=== PATIENT | female | born 1955 | race Caucasian/White ===

== ENCOUNTER → 2019-06-27 11:31 | Day surgery (SDC) | payer BC ==
[~2019-06-27 11:31] MED LIST: Buffered Lidocaine 1% SYRIN* 1 ML/SYRINGE INTRADERM ONE; Bupivacaine 0.25% SDV PF* 10 ML VIAL INJ ONE; Lactated Ringers 1000 ML Bag* 1,000 ML IV SCH; Lidocaine 1% w EPI 1:100,000* MDV 20 ML VIAL ONE; Midazolam* 1 MG/ML 2 ML VIAL (2 MG) ONE; Naloxone* 0.4 MG/ML 1 ML VIAL IV PRN; Propofol* 10 MG/ML 20 ML BTL ONE; ceFAZolin 2 GM in NS PREMIX(*) 2 GM/100 ML BAG IVPB ONE; fentaNYL* 50 MCG/ML 2 ML VIAL (100 MCG VIAL) ONE
[2019-06-27 16:27] VITALS: BP 146/80
== END | disposition home or self-care (01) ==
LOC: OR 11:31
PROVIDERS: ATTEND Plastic Surgery
DX: C44.712 Basal cell carcinoma of skin of right lower limb, including hip (principal); J30.89 Other allergic rhinitis; Z85.828 Personal history of other malignant neoplasm of skin; E78.5 Hyperlipidemia, unspecified; R00.2 Palpitations; G47.00 Insomnia, unspecified
CPT/HCPCS: 88305; 88331; 88332; J0690; J2250; J2704; J3010; J3490

== ENCOUNTER 2023-03-24 14:11 | Inpatient (IN) ==
[2023-03-24 16:35] LABS: ABS Eosinophils 0.1 10^3/uL (0.0-0.5); ABS Lymphocytes 1.1 10^3/uL (1.0-4.8); ABS Monocytes 0.6 10^3/uL (0.0-0.9); ABS Nucleated RBC 0.01 10^3/ul; Eosinophil % 0.5 %; Hematocrit 37.7 % (35-45); Hemoglobin 13.2 g/dL (11.5-14.3); Lymphocyte % 10.2 %; Mean Corpuscular Hemoglobin 33.4 pg (27-33); Mean Corpuscular Hgb Conc 35.1 g/dL (31-36); Mean Corpuscular Volume 95.1 fL (80-97); Nucleated Red Blood Cells % 0.1 /100 WBC (0.0-0.4); Platelet Count 257 10^3/uL (150-450); Red Blood Count 3.97 10^6/uL (3.63-4.92); Red Cell Distribution Width 12.6 % (12-17); White Blood Count 10.8 10^3/uL (3.8-11.8)
[2023-03-24 16:39] LABS: Urine Appearance Cloudy; Urine Bilirubin Negative (Negative); Urine Blood 1+ (Negative); Urine Color Amber; Urine Glucose Negative (Negative); Urine Ketones 2+ (Negative); Urine Nitrite Negative (Negative); Urine Protein 1+(30 mg/dL) (Negative); Urine Specific Gravity 1.031 (1.002-1.030); Urine Urobilinogen Negative (Negative)
[2023-03-24 16:44] LABS: Urine Bacteria Absent (Absent); Urine Red Blood Cell 3+(>10/hpf) (Absent); Urine Squamous Epithelial Cell Present (Absent); Urine White Blood Cell 2+(11-20/hpf) (Absent)
[2023-03-24 17:30] LABS: Albumin 4.1 g/dL (3.2-5.2); Albumin/Globulin Ratio 1.3 (1-3); C Reactive Protein 269.24 mg/L (<8.01); Calcium 9.1 mg/dL (8.6-10.3); Creatinine, Serum 0.66 mg/dL (0.51-0.95); Globulin 3.2 g/dL (2-4); Potassium 4.1 mmol/L (3.5-5.0); Total Bilirubin 0.8 mg/dL (0.2-1.0); Total Protein 7.3 g/dL (6.4-8.9); eGFR CKD-EPI 96.7 (>60)
[2023-03-24] MEDS ORDERED: Lactated Ringers 1000 ml BAG 1,000 ML IV ONE (18:02)
[2023-03-24] MEDS ORDERED: Ondansetron 4 mg VIAL 2 MG/ML 2 ml VIAL IV ONE (18:02)
[2023-03-24] MEDS ORDERED: Iohexol 350 (CONTRAST) 500 ML MDV IV ONE (18:10)
[2023-03-24] MEDS ORDERED: metroNIDAZOLE IV 500 MG/100ML 500 MG/100 ML BAG IVPB ONE (19:43)
[2023-03-24] MEDS ORDERED: Piperacillin/Tazobac ADVAN 3.375 GM in NS 0.9% 100 ml BAG 100 ML IV ONE (19:43)
[2023-03-24] MEDS ORDERED: HYDROmorphone 1 MG/1 ML SYRINGE IV SLOW PU PRN (19:56)
[2023-03-24] MEDS ORDERED: oxyCODONE/Acetamin 5/325 mg TAB PO PRN (19:56)
[2023-03-24] MEDS ORDERED: Ondansetron 4 mg VIAL 2 MG/ML 2 ml VIAL IV PRN (20:04)
[2023-03-24] MEDS ORDERED: Metoclopramide 5 MG/ML VIAL (10 mg) IV PRN (20:04)
[2023-03-24] MEDS: NS 0.9% 1000 ml BAG 1,000 ML IV SCH (20:42)
[2023-03-24] MEDS: cefTRIAXone 1 gm/50 mL D5W 1 GM/50 ML BAG IV SCH (22:08)
[2023-03-25] MEDS: metroNIDAZOLE IV 500 MG/100ML 500 MG/100 ML BAG IVPB SCH ×3 (05:05→21:05)
[2023-03-25 06:08] LABS: ABS Eosinophils 0.1 10^3/uL (0.0-0.5); ABS Lymphocytes 1.1 10^3/uL (1.0-4.8); ABS Monocytes 0.7 10^3/uL (0.0-0.9); ABS Neutrophils 6.3 10^3/uL (1.5-7.6); ABS Nucleated RBC 0.01 10^3/ul; Eosinophil % 1.1 %; Hematocrit 34.9 % (35-45); Lymphocyte % 13.7 %; Mean Corpuscular Hemoglobin 33.4 pg (27-33); Mean Corpuscular Hgb Conc 34.5 g/dL (31-36); Mean Corpuscular Volume 96.8 fL (80-97); Nucleated Red Blood Cells % 0.1 /100 WBC (0.0-0.4); Platelet Count 220 10^3/uL (150-450); Red Cell Distribution Width 12.5 % (12-17); White Blood Count 8.2 10^3/uL (3.8-11.8)
[2023-03-25 08:30] LABS: Calcium 8.3 mg/dL (8.6-10.3)
[2023-03-25 08:35] LABS: C Reactive Protein 213.26 mg/L (<8.01); Creatinine, Serum 0.65 mg/dL (0.51-0.95)
[2023-03-25] MEDS: Enoxaparin 40 MG/0.4 ML SYR SUBCUT SCH (09:03)
[2023-03-25] MEDS: NS 0.9% 1000 ml BAG 1,000 ML IV SCH ×2 (10:07→21:02)
[2023-03-25] MEDS: cefTRIAXone 1 gm/50 mL D5W 1 GM/50 ML BAG IV SCH (19:55)
[2023-03-26] MEDS: metroNIDAZOLE IV 500 MG/100ML 500 MG/100 ML BAG IVPB SCH ×2 (04:40→14:16)
[2023-03-26 06:01] LABS: Hematocrit 33.6 % (35-45); Hemoglobin 11.5 g/dL (11.5-14.3); Mean Corpuscular Hemoglobin 32.9 pg (27-33); Mean Corpuscular Hgb Conc 34.2 g/dL (31-36); Mean Corpuscular Volume 96.3 fL (80-97); Mean Platelet Volume 8.6 fL (7.5-11.2); Platelet Count 258 10^3/uL (150-450); Red Blood Count 3.49 10^6/uL (3.63-4.92); Red Cell Distribution Width 12.6 % (12-17); White Blood Count 5.7 10^3/uL (3.8-11.8)
[2023-03-26 06:24] LABS: Calcium 7.7 mg/dL (8.6-10.3); Creatinine, Serum 0.5 mg/dL (0.51-0.95); Potassium 3.8 mmol/L (3.5-5.0); eGFR CKD-EPI 103.4 (>60)
[2023-03-26] MEDS ORDERED: Calcium Carb (TUMS) 500 mg CHEW TAB PO SCH (09:00)
[2023-03-26] MEDS: Enoxaparin 40 MG/0.4 ML SYR SUBCUT SCH (09:04)
[2023-03-26] MEDS: NS 0.9% 1000 ml BAG 1,000 ML IV SCH (09:24)
[2023-03-26 13:34] VITALS: BP 126/70
== END 2023-03-26 16:30 | disposition home or self-care (01) | DRG 392 ==
LOC: ED 14:11 → EDHOLD 19:56 → MED 03-25 02:10 → UNDODISIN 03-26 12:25
PROVIDERS: ADMIT Surgery; ATTEND Surgery